=== PATIENT | female | born 1955 | race Two or more races ===

== ENCOUNTER 2024-06-25 19:38 | Emergency (ER) | payer BC, MEDICAID ==
[~2024-06-25] VITALS: Ht 160 cm; Wt 68.1 kg
[2024-06-25 19:40] VITALS: O2SAT 100
[2024-06-25] MEDS ORDERED: MORPHINE SULFATE 4 MG/ML SYR/VIAL IM ONE (20:00)
--- NOTE | 2024-06-25 20:48 | DVH ---
Exam: CT CT AB PEL WO CON-NO ORAL OR IV History: flank pain Comparison Study: None Technique: Multidetector CT of the abdomen and pelvis without contrast. Axial, coronal and sagittal m ultiplanar reformats were performed by the technologist on a separate workstation. Radiation Dose Information: CT Dose: CTDI volume is 7.73 mGy. Dose-length product is 410.41 mGy*cm Findings: Bibasilar atelectasis. Mild cardiomegaly. Mild hepatomegaly with hepatic steatosis. Cholelithiasis with no CT evidence of acute cholecystitis. Spleen, pancreas and right adrenal gland are unremarkable. 1.4 cm left adrenal nodule. Moderate right hydroureteronephrosis with 0.4 cm obstructing calculus over the right distal ureter. M ild asymmetric right-sided perinephric fat stranding which is most likely from the obstructive hydron ephrosis. The left kidney, left ureter and urinary bladder unremarkable. Uterus and adnexa unremarkab le. Small hiatal hernia. Otherwise, stomach is unremarkable. Small bowel loops unremarkable. Appendix is unremarkable. Sigmoid diverticulosis without diverticulitis. No evidence of intraperitoneal free air or free fluid. No evidence of aortic aneurysm. Mild atherosclerotic calcification of the aorta and bilateral iliacs. No significant lymphadenopathy. Small fat containing umbilical hernia. Soft tissues are unremarkable. No destructive osseous lesions are noted. IMPRESSION: Moderate right hydroureteronephrosis with 0.4 cm obstructing calculus over the right distal ureter. Cholelithiasis with no CT evidence of acute cholecystitis. Mild hepatomegaly with hepatic steatosis. Small hiatal hernia. 1.4 cm left adrenal nodule.
[2024-06-25 20:59] LABS: Basophils # (auto) 0 10 ^3/uL (0-0.2); Basophils % (auto) 0.2 % (0.0-2.0); Eosinophils # (auto) 0 10 ^3/uL (0-0.8); Eosinophils % (auto) 0.2 % (0.0-7.0); Hematocrit 45.1 % (36.0-46.0); Hemoglobin 15.7 g/dL (12.2-16.2); Lymphocytes # (auto) 0.8 10 ^3/uL (0.4-5.4); Lymphocytes % (auto) 6.5 % (10.0-50.0); Mean Corpuscular Hemoglobin 30.7 pg (28.0-32.0); Mean Corpuscular Hgb Conc. 34.8 g/dL (32.0-36.0); Mean Corpuscular Volume 88.3 fL (80.0-100.0); Monocytes # (auto) 0.3 10 ^3/uL (0-1.3); Monocytes % (auto) 2.1 % (0.0-12.0); Neutrophils # (auto) 11.7 10 ^3/uL (1.6-8.6); Platelet Count (auto) 231 10^3/uL (140-450); Red Blood Cells 5.11 10^6/uL (4.0-5.20); Red Cell Distribution Width 13.9 % (11.8-14.3); White Blood Cell 12.8 10^3/uL (4.4-10.8)
[2024-06-25 21:13] LABS: Chloride 107 mmol/L (98-107); Potassium 4.2 mmol/L (3.5-5.1); Sodium 140 mmol/L (136-145)
[2024-06-25 21:14] LABS: Anion Gap 12 (5-15); Calcium 10.6 mg/dL (8.7-10.4); Carbon Dioxide 21 mmol/L (20-31)
--- NOTE | 2024-06-25 21:14 | ED.PDOC ---
General HPI Comments Patient complaining of right-sided flank pain which started today. Reports pain is 10/10. Reports some mild dysuria today. Nothing makes it better, nothing makes it worse. Patient does report a history of kidney stones. States she was hospitalist for kidney stones six months ago approximately. No new foods no new medications no recent travel no trauma to the back no heavy lifting. 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 History Constitutional: denies: chills, diaphoresis, fatigue, fever, malaise, sweats, weakness, others EENTM: denies: blurred vision, double vision, ear bleeding, ear discharge, ear drainage, ear pain, ear ringing, eye pain, eye redness, hearing loss, mouth pain, mouth swelling, nasal discharge, nose bleeding, nose congestion, nose pain, photophobia, tearing, throat pain, throat swelling, voice changes, others Respiratory: denies: cough, hemoptysis, orthopnea, SOB at rest, shortness of breath, SOB with excertion, stridor, wheezing, others Cardiovascular: denies: chest pain, dizzy spells, diaphoresis, Dyspnea on exertion, edema, irregular heart beat, left arm pain, lightheadedness, palpitations, PND, syncope, others Gastrointestinal: denies: abdomen distended, abdominal pain, blood streaked bowels, constipated, diarrhea, dysphagia, difficulty swallowing, hematemesis, melena, nausea, poor appetite, poor fluid intake, rectal bleeding, rectal pain, vomiting, others Genitourinary: reports: flank pain; denies: abnormal vagina bleeding, burning, dyspareunia, dysuria, frequency, hematuria, incontinence, pain, , vagina discharge, urgency, others Neurological: denies: dizziness, fainting, headache, left sided numbness, left sided weakness, numbness, paresthesia, pre-existing deficit, right sided numbness, right sided weakness, seizure, speech problems, tingling, tremors, weakness, others Musculoskeletal: denies: back pain, gout, joint pain, joint swelling, muscle pain, muscle stiffness, neck pain, others Integumetry: denies: bruises, change in color, change in hair/nails, dryness, laceration, lesions, lumps, rash, wounds, others Allergic/Immunocompromised: denies: Difficulty Healing, Frequent Infections, Hives, Itching, others Hematologic/Lymphatic: denies: anemia, blood clots, easy bleeding, easy bruising, swollen glands, others Endocrine: denies: excessive hunger, excessive sweating, excessive thirst, excessive urination, flushing, intolerance to cold, intolerance to heat, unex plained weight gain, unexplained weight loss, others Psychiatric: denies: anxiety, bipolar disorder, depression, hopeless, panic disorder, schizophrenia, sleepless, suicidal, others Physical Exam General Appearance: Severe Distress HEENT: Normal ENT Inspection, Pharynx Normal, TMs Normal Neck: Full Range of Motion, Non-Tender, Normal, Normal Inspection Respiratory: Chest Non-Tender, Lungs Clear, No Accessory Muscle Use, No Respiratory Distress, Normal Breath Sounds Cardiovascular: No Edema, No JVD, No Murmur, No Gallop, Normal Peripheral Pulses, Regular Rate/Rhythm Breast Exam: Deferred Gastrointestinal: No Organomegaly, Non Tender, No Pulsatile Mass, Normal Bowel Sounds, Soft Genitalia: Deferred Pelvic: Deferred Rectal: Deferred Extremities: No calf tenderness, Normal capillary refill, Normal inspection, Normal range of motion, Non-tender, No pedal edema Musculoskeletal : Location: Bilateral Extremity Location: Other (Negative CVA tenderness) Apperance: Normal Neurologic: Alert, auto adjudication specialist II-XII nml as Tested, No Motor Deficits, Normal Affect, Normal Mood, No Sensory Deficits Cerebellar Function: Normal Reflexes: Normal Skin: Dry, Normal Color, Warm Lymphatic: No Adenopathy Was a procedure done? Was a procedure done?: No Differential Diagnosis Kidney stone (Female): Bowel obstruction, Cholelithiasis, Renal failure, Strain, Urinary obstruction X-Ray, Labs, Meds, VS Vital Signs Date Time Temp Pulse Resp B/P (MAP) Pulse Ox O2 Delivery O2 Flow Rate FiO2 06/25/24 19:40 98.3 108 20 152/89 (110) 100 Lab Test 06/25/24 20:10 Range/Units White Blood Count 12.8 H 4.4-10.8 10^3/uL Red Blood Count 5.11 4.0-5.20 10^6/uL Hemoglobin 15.7 12.2-16.2 g/dL Hematocrit 45.1 36.0-46.0 % Mean Corpuscular Volume 88.3 80.0-100.0 fL Mean Corpuscular Hemoglobin 30.7 28.0-32.0 pg Mean Corpuscular Hemoglobin Concent 34.8 32.0-36.0 g/dL Red Cell Distribution Width 13.9 11.8-14.3 % Platelet Count 231 140-450 10^3/uL Mean Platelet Volume 9.2 6.9-10.8 fL Neutrophils (%) (Auto) 91.0 H 37.0-80.0 % Lymphocytes (%) (Auto) 6.5 L 10.0-50.0 % Monocytes (%) (Auto) 2.1 0.0-12.0 % Eosinophils (%) (Auto) 0.2 0.0-7.0 % Basophils (%) (Auto) 0.2 0.0-2.0 % Neutrophils # (Auto) 11.7 H 1.6-8.6 10 ^3/uL Lymphocytes # (Auto) 0.8 0.4-5.4 10 ^3/uL Monocytes # (Auto) 0.3 0-1.3 10 ^3/uL Eosinophils # (Auto) 0 0-0.8 10 ^3/uL Basophils # (Auto) 0 0-0.2 10 ^3/uL Nucleated Red Blood Cells 0.0 % Sodium Level Pending Potassium Level Pending Chloride Level Pending Carbon Dioxide Level Pending Anion Gap Pending Blood Urea Nitrogen Pending Creatinine Pending Glomerular Filtration Rate Calc Pending BUN/Creatinine Ratio Pending Serum Glucose Pending Calcium Level Pending X-Ray, Labs, Meds, VS Comment Patient will be admitted for obstructing kidney stone on left side Recommend urology consult We will scan gallbladder he ultrasound to better visualize common bile duct Patient will be started on pain medications Time of 1ST Reevaluation: 21:14 Reevaluation 1ST: Unchanged Patient Education/Counseling: Diagnosis, Treatment Family Education/Counseling: Diagnosis Departure 1 Departure Time of Disposition: 21:13 Impression: Primary Impression: Cholelithiasis Qualified Codes: K80.80 - Other cholelithiasis without obstruction Additional Impression: Urinary tract obstruction by kidney stone Disposition: ADMITTED INPATIENT Condition: Stable Critical Care Note Critical Care Time?: No Stability Stability form required: No Heart Score Heart Score: Heart Score Response (Comments) Value History N/A 0 EKG N/A 0 Age N/A 0 Risk Factors N/A 0 Troponin N/A 0 Total 0 STEPHANIE CORCORAN CUFF MAKER Jun 25, 2024 21:14
[2024-06-25 21:19] LABS: BUN/Creatinine Ratio 13.9 (10.0-20.0); Blood Urea Nitrogen 14 mg/dL (9-23); Glucose 205 mg/dL (74-106)
--- NOTE | 2024-06-25 21:42 | DVH ---
INDICATION: flank pain TECHNIQUE: Multiple real-time sonographic images were obtained of the right upper quadrant. COMPARISON: None FINDINGS: The liver demonstrates homogeneous echotexture without focal mass lesions. The liver measu res 18 cm. There is no intrahepatic or extrahepatic ductal dilatation. The common duct measures 0.3 cm. The gallbladder is without evidence of stone or sludge. The gallbladder wall measures 3.0 cm and is within normal limits. The right kidney measures 12.0 cm. The right kidney is normal in contour, size, and shape. The echo genicity is normal. Mild right-sided hydronephrosis. The pancreas is not well visualized due to overlying bowel gas. IMPRESSION: 1. Cholelithiasis without evidence of cholecystitis. 2. Mild right-sided hydronephrosis.
[2024-06-25] MEDS: KETOROLAC TROMETH 30 MG/ML 1ML VIAL IV ONE (21:45)
[2024-06-25] MEDS ORDERED: ONDANSETRON HCL 4 MG/2 ML VIAL IV PRN (23:45)
[2024-06-25] MEDS: TAMSULOSIN HYDROCHLORIDE 0.4 MG CAP PO ONE (23:46)
[2024-06-25] MEDS: MORPHINE SULFATE 4 MG/ML SYR/VIAL IV PRN (23:46)
[2024-06-25] MEDS: cefTRIAXone 1GM/50ML D5W 50 ML IV ONE (23:46)
[2024-06-25] MEDS: SODIUM CHLORIDE 0.9% 1,000 ML IV ONE (23:46)
[2024-06-26 00:25] VITALS: BP 142/92; PULSE 100; RESP 18
== END 2024-06-26 01:30 | disposition left against medical advice (07) ==
LOC: EDBD 19:38 → ER 19:38
DX: K80.20 Calculus of gallbladder without cholecystitis without obstruction (principal); N13.8 Other obstructive and reflux uropathy; N20.0 Calculus of kidney
CPT/HCPCS: 36415; 74176; 76705; 80048; 85025; 96365; 96375; 99285; J0696; J1885; J2270

== ENCOUNTER 2024-07-30 12:49 | Inpatient (IN) | payer BC, MEDICAID ==
[~2024-07-30] VITALS: Ht 170.2 cm; Wt 78.9 kg
--- NOTE | 2024-07-30 13:18 | ED.PDOC ---
History of Present Illness HPI Comments 68 y/o F presents with son for c/o left-shoulder wound drainage and associated pain, nausea, vomiting, fever, and chills, today. Per son, patent is stated to have been progressively getting worse since initial onset after being placed on oral Doxycycline antibiotics following urgent care facility visit for chronic wound to her left shoulder that she has had for "awhile." Patient rates pain a 7-10/10 and wound last being dressed, this morning. She reports no additional relevant or pertinent Hx, such as recent injuries. Patient reports no headache, urinary symptoms, abdominal pain, cough, shortness of breath, or other associated symptoms or modifiers at this time. Time Seen by MD: 13:00 Reviewed Notes: Nurses Notes, Medications, Allergies Allergies: Coded Allergies: NO KNOWN ALLERGIES (Unverified , 06/25/24) Information Source: Patient, Relative (Child) Mode of Arrival: Wheelchair Severity: Moderate Timing: Weeks Duration: Since onset Prehospital treatment: Other (see HPI) Past Medical History PAST MEDICAL HISTORY: CVA, High Lipids, Kidney Stones Surgical History: Cholecystectomy, , Denies all surgeries DISC RECORDIST History: No Pertinent DISC RECORDIST History Family History Family History: Unknown Social History Smoker: Cigarettes Alcohol: Denies ETOH Use Drugs: Denies Drug Use Lives In: Home Constitutional: reports: chills, fever; denies: diaphoresis, fatigue, malaise, sweats, weakness, others EENTM: denies: blurred vision, double vision, ear bleeding, ear discharge, ear drainage, ear pain, ear ringing, eye pain, eye redness, hearing loss, mouth pain, mouth swelling, nasal discharge, nose bleeding, nose congestion, nose pain, photophobia, tearing, throat pain, throat swelling, voice changes, others Respiratory: denies: cough, hemoptysis, orthopnea, SOB at rest, shortness of breath, SOB with excertion, stridor, wheezing, others Cardiovascular: denies: chest pain, dizzy spells, diaphoresis, Dyspnea on exertion, edema, irregular heart beat, left arm pain, lightheadedness, palpitations, PND, syncope, others Gastrointestinal: reports: nausea, vomiting; denies: abdomen distended, abdominal pain, blood streaked bowels, constipated, diarrhea, dysphagia, difficulty swallowing, hematemesis, melena, poor appetite, poor fluid intake, rectal bleeding, rectal pain, others Genitourinary: denies: abnormal vagina bleeding, burning, dyspareunia, dysuria, flank pain, frequency, hematuria, incontinence, pain, , vagina discharge, urgency, others Neurological: denies: dizziness, fainting, headache, left sided numbness, left sided weakness, numbness, paresthesia, pre-existing deficit, right sided numbness, right sided weakness, seizure, speech problems, tingling, tremors, weakness, others Musculoskeletal: reports: others (left shoulder pain); denies: back pain, gout, joint pain, joint swelling, muscle pain, muscle stiffness, neck pain Integumetry: reports: wounds (left shoulder wound drainage); denies: bruises, change in color, change in hair/nails, dryness, laceration, lesions, lumps, rash, others Allergic/Immunocompromised: denies: Difficulty Healing, Frequent Infections, Hives, Itching, others Hematologic/Lymphatic: denies: anemia, blood clots, easy bleeding, easy bruising, swollen glands, others Endocrine: denies: excessive hunger, excessive sweating, excessive thirst, excessive urination, flushing, intolerance to cold, intolerance to heat, unexplained weight gain, unexplained weight loss, others Psychiatric: denies: anxiety, bipolar disorder, depression, hopeless, panic disorder, schizophrenia, sleepless, suicidal, others All Other Systems: Reviewed and Negative Physical Exam General Appearance: Moderate Distress HEENT: Normal ENT Inspection, Pharynx Normal, TMs Normal Neck: Full Range of Motion, Non-Tender, Normal, Normal Inspection Respiratory: Chest Non-Tender, Lungs Clear, No Accessory Muscle Use, No Respiratory Distress, Normal Breath Sounds Cardiovascular: No Edema, No JVD, No Murmur, No Gallop, Normal Peripheral Pulses, Regular Rate/Rhythm Breast Exam: Deferred Gastrointestinal: No Organomegaly, Non Tender, No Pulsatile Mass, Normal Bowel Sounds, Soft Genitalia: Deferred Pelvic: Deferred Rectal: Deferred Extremities: No calf tenderness, Normal capillary refill, Normal inspection, Normal range of motion, Non-tender, No pedal edema Musculoskeletal : Apperance: Normal Neurologic: Alert, warp tying 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 Was a procedure done?: No Differential Dx Considerations may include: sepsis, cellulitis, dermatitis X-Ray, Labs, Meds, VS Vital Signs Date Time Temp Pulse Resp B/P (MAP) Pulse Ox O2 Delivery O2 Flow Rate FiO2 07/30/24 13:44 93 16 110/75 07/30/24 13:21 93 20 97 Room Air 07/30/24 13:21 97.5 93 20 110/75 (87) 97 97.5 07/30/24 13:00 98.3 104 18 97/76 (83) 95 Lab Test 07/30/24 13:10 Range/Units White Blood Count 5.0 4.4-10.8 10^3/uL Red Blood Count 5.41 H 4.0-5.20 10^6/uL Hemoglobin 16.2 12.2-16.2 g/dL Hematocrit 48.0 H 36.0-46.0 % Mean Corpuscular Volume 88.7 80.0-100.0 fL Mean Corpuscular Hemoglobin 29.9 28.0-32.0 pg Mean Corpuscular Hemoglobin Concent 33.7 32.0-36.0 g/dL Red Cell Distribution Width 14.2 11.8-14.3 % Platelet Count 222 140-450 10^3/uL Mean Platelet Volume 9.5 6.9-10.8 fL Neutrophils (%) (Auto) 66.7 37.0-80.0 % Lymphocytes (%) (Auto) 20.6 10.0-50.0 % Monocytes (%) (Auto) 11.9 0.0-12.0 % Eosinophils (%) (Auto) 0.3 0.0-7.0 % Basophils (%) (Auto) 0.5 0.0-2.0 % Neutrophils # (Auto) 3.3 1.6-8.6 10 ^3/uL Lymphocytes # (Auto) 1.0 0.4-5.4 10 ^3/uL Monocytes # (Auto) 0.6 0-1.3 10 ^3/uL Eosinophils # (Auto) 0 0-0.8 10 ^3/uL Basophils # (Auto) 0 0-0.2 10 ^3/uL Nucleated Red Blood Cells 0.2 % Prothrombin Time 10.8 9.3-11.8 sec Prothrombin Time INR 1.02 0.9-1.15 Sodium Level 135 L 136-145 mmol/L Potassium Level 3.9 3.5-5.1 mmol/L Chloride Level 105 98-107 mmol/L Carbon Dioxide Level 19 L 20-31 mmol/L Anion Gap 11 5-15 Blood Urea Nitrogen 21 9-23 mg/dL Creatinine 1.05 H 0.550-1.02 mg/dL Glomerular Filtration Rate Calc 59 >90 mL/min BUN/Creatinine Ratio 20.0 10.0-20.0 Serum Glucose 177 H 74-106 mg/dL Lactic Acid Level 1.3 0.4-2.0 mmol/L Calcium Level 9.9 8.7-10.4 mg/dL Current Medications Medications (Trade) Dose Ordered Sig/Myah Route Start Time Stop Time Status Last Admin Morphine Sulfate 4 mg ONCE ONCE IV 07/30/24 13:15 07/30/24 13:16 DC 07/30/24 13:44 Ondansetron HCl (Zofran) 4 mg ONCE ONCE IV 07/30/24 13:15 07/30/24 13:16 DC 07/30/24 13:44 The chest x-ray shows: IMPRESSION: Mild pulmonary vascular congestion. CT scan of the left shoulder is pending The CBC and chemistry panel is within normal limits The patient was given morphine 4 mg IV push for the pain The patient was given Zofran 4 mg IV push for the nausea and vomiting At this time, the patient will be admitted to the hospital. We spoke with the [facility] physician and he is admitting the patient was this time. Images Reviewed?: Images reviewed and evaluated by me Time of 1ST Reevaluation: 13:30 Reevaluation 1ST: Unchanged Patient Education/Counseling: Diagnosis, Treatment, Prognosis Family Education/Counseling: Diagnosis, Treatment, Prognosis Departure 1 Departure Time of Disposition: 16:05 Impression: Primary Impression: Infected blister of left shoulder Qualified Codes: S40.222A - Blister (nonthermal) of left shoulder, initial encounter; L08.9 - Local infection of the skin and subcutaneous tissue, unspecified Additional Impression: Abscess of left shoulder Disposition: ADMITTED INPATIENT Admit to: Med Surg Condition: Fair Critical Care Note Critical Care Time?: No Stability Stability form required: Yes Unstable for transfer: ED Physician Assesment (Clinical assesment) Heart Score Heart Score: Heart Score Response (Comments) Value History N/A 0 EKG N/A 0 Age N/A 0 Risk Factors N/A 0 Troponin N/A 0 Total 0 I personally scribed for MIMI VILLARREAL MD ([email or web address]) on 07/30/24 at 13:18. Elec tronically submitted by Phoenix Joseph ([email or web address]). MIMI VILLARREAL MD Jul 30, 2024 13:18
[2024-07-30 13:35] LABS: Basophils # (auto) 0 10 ^3/uL (0-0.2); Basophils % (auto) 0.5 % (0.0-2.0); Eosinophils # (auto) 0 10 ^3/uL (0-0.8); Eosinophils % (auto) 0.3 % (0.0-7.0); Hemoglobin 16.2 g/dL (12.2-16.2); Lymphocytes % (auto) 20.6 % (10.0-50.0); Mean Corpuscular Hemoglobin 29.9 pg (28.0-32.0); Mean Corpuscular Hgb Conc. 33.7 g/dL (32.0-36.0); Mean Corpuscular Volume 88.7 fL (80.0-100.0); Monocytes # (auto) 0.6 10 ^3/uL (0-1.3); Monocytes % (auto) 11.9 % (0.0-12.0); Neutrophils # (auto) 3.3 10 ^3/uL (1.6-8.6); Neutrophils % (auto) 66.7 % (37.0-80.0); Nucleated Red Blood Cells % 0.2 %; Platelet Count (auto) 222 10^3/uL (140-450); Red Blood Cells 5.41 10^6/uL (4.0-5.20); Red Cell Distribution Width 14.2 % (11.8-14.3)
[2024-07-30 13:43] LABS: Chloride 105 mmol/L (98-107); Potassium 3.9 mmol/L (3.5-5.1)
[2024-07-30 13:44] LABS: Anion Gap 11 (5-15); Calcium 9.9 mg/dL (8.7-10.4)
[2024-07-30] MEDS: ONDANSETRON HCL 4 MG/2 ML VIAL IV ONE (13:44)
[2024-07-30] MEDS: MORPHINE SULFATE 4 MG/ML SYR/VIAL IV ONE (13:44)
[2024-07-30 13:49] LABS: Blood Urea Nitrogen 21 mg/dL (9-23)
[2024-07-30 13:50] LABS: Carbon Dioxide 19 mmol/L (20-31); Glucose 177 mg/dL (74-106); Sodium 135 mmol/L (136-145)
[2024-07-30] MEDS ORDERED: VANCOMYCIN PER PHARMACY 0 MG IV SCH (14:15)
[2024-07-30] MEDS: SODIUM CHLORIDE 0.9% 1,000 ML IV ONE (14:15)
[2024-07-30] MEDS ORDERED: NITROGLYCERIN 0.4 MG SL TAB SL PRN (14:15)
[2024-07-30 14:50] VITALS: PULSE 93; RESP 20; O2SAT 97
[2024-07-30 14:59] LABS: INR 1.02 (0.9-1.15); Prothrombin Time 10.8 sec (9.3-11.8)
[2024-07-30] MEDS: PIPERACILLIN-TAZOB 3.375GM 100 ML IV ONE (15:08)
--- NOTE | 2024-07-30 15:36 | DVH ---
CHEST RADIOGRAPH Indication: pna Technique: Single frontal view of the chest was obtained Comparison: None FINDINGS: Lines and Tubes: None Lungs: No focal consolidation. Mild interstitial prominence. Pleura: No effusion. No pneumothorax. Cardiomediastinal contours: Unremarkable Bones: No acute osseous abnormality. IMPRESSION: Mild pulmonary vascular congestion.
[2024-07-30] MEDS: VANCOMYCIN 1.25GM/250ML 250 ML IV ONE (15:37)
[2024-07-30] MEDS ORDERED: ONDANSETRON HCL 4 MG/2 ML VIAL IV PRN (18:00)
[2024-07-30] MEDS: HYDROcodone-ACET 10/325MG TAB PO ONE (19:49)
--- NOTE | 2024-07-30 21:29 | DVH ---
INDICATION: pain COMPARISON: None TECHNIQUE: CT of the right was performed without contrast. Volume transverse images were obtained a nd reconstructed in multiple planes using bone and soft tissue algorithms. CONTRAST: None Radiation Dose Information: CT Dose: CTDI volume is 20.69 mGy. Dose-length product is 457.42 mGy*cm FINDINGS: The alignment is normal. The joint spaces are normal. Fracture of the 1st rib and manubrium. The soft tissues are normal. IMPRESSION: Appears to be a fracture of the medial aspect of the 1st rib with the articulation of the manubrium.
[2024-07-30] MEDS: PIPERACILLIN-TAZOB 3.375GM 100 ML IV SCH (22:44)
[2024-07-31] VITALS (9 sets, daily range): BP systolic 103–121; BP diastolic 61–69; PULSE 77–93; RESP 16–22; TEMP 97.9–99.5; O2SAT 92–96
[2024-07-31] MEDS: MORPHINE SULFATE INJ 2 MG/ml SYRG IV PRN ×2 (02:03→02:05)
--- NOTE | 2024-07-31 06:55 | DVHHP2 ---
Admitting Diagnosis: wound History of Present Illness HPI 68 F who comes to ER with a wound over her L upper back. She states she had gone to the and was given PO doxycycline however over the last few days there has been significant drainage and she has been experiencing more pain associated with nausea and vomiting. On arrival to ED she was noted to have a saturated dressing over the wound with surrounding erythema. She was given IV Abx in ER and will be admitted to the hospital for continued IV Abx and ID consult. She denies any other complaints or issues. Home Meds Unable to Obtain Active Prescriptions or Reported Meds Past Medical History Cardiac: Hyperlipidemia Patient Family History: Patient reports no known family medical history. Review of Systems Constitutional: No symptom reported Eyes: No symptom reported Gastrointestinal: Nausea, Vomiting Genitourinary: No symptom reported Musculoskeletal: Back pain Skin: No symptom reported Endocrine: No symptom reported H&P Exam Vital Signs Vital Signs Date Time Temp Pulse Resp B/P (MAP) Pulse Ox O2 Delivery O2 Flow Rate FiO2 07/31/24 02:35 84 18 113/77 07/31/24 01:07 Room Air* 0 21 07/31/24 01:00 98.4 93 98.4 General Appeara: Well developed Neck Exam: Non-tender Nasal Exam: Normal inspection Pulmonary/Respiratory: Decreased breath sounds Cardiovascular/Chest: Normal inspection Wounds L upper back, surrounding erythema and drainage noted Labs/Xrays Labs Test 07/31/24 05:38 07/30/24 13:10 Range/Units Eosinophils (%) (Auto) 0.3 0.0-7.0 % Eosinophils # (Auto) 0 0-0.8 10 ^3/uL Basophils # (Auto) 0 0-0.2 10 ^3/uL Nucleated Red Blood Cells 0.2 % Prothrombin Time 10.8 9.3-11.8 sec Prothrombin Time INR 1.02 0.9-1.15 Lactic Acid Level 1.3 0.4-2.0 mmol/L Assessment/Plan Primary Diagnosis 1) L upper back abscess 2) hx of CVA 3) HLD plan; admit tele, IV Abx broad spectrum, wound CX and BCx, cardiac diet, gen surg eval for ?drainage, ID consult, supportive care, will follow Plan discussed with: Other (n) JOHNNY WALSH MD Jul 31, 2024 06:55
[2024-07-31 06:59] LABS: Chloride 105 mmol/L (98-107); Potassium 3.6 mmol/L (3.5-5.1); Sodium 137 mmol/L (136-145)
[2024-07-31 07:00] LABS: Anion Gap 10 (5-15); Calcium 9.2 mg/dL (8.7-10.4); Carbon Dioxide 22 mmol/L (20-31)
[2024-07-31 07:03] LABS: Basophils # (auto) 0 10 ^3/uL (0-0.2); Basophils % (auto) 0.5 % (0.0-2.0); Eosinophils # (auto) 0 10 ^3/uL (0-0.8); Eosinophils % (auto) 0.9 % (0.0-7.0); Hematocrit 41.6 % (36.0-46.0); Hemoglobin 14.1 g/dL (12.2-16.2); Lymphocytes # (auto) 1.1 10 ^3/uL (0.4-5.4); Lymphocytes % (auto) 23.8 % (10.0-50.0); Mean Corpuscular Hgb Conc. 33.8 g/dL (32.0-36.0); Mean Corpuscular Volume 88.7 fL (80.0-100.0); Monocytes # (auto) 0.5 10 ^3/uL (0-1.3); Monocytes % (auto) 11.4 % (0.0-12.0); Neutrophils % (auto) 63.4 % (37.0-80.0); Nucleated Red Blood Cells % 0.1 %; Platelet Count (auto) 163 10^3/uL (140-450); Red Blood Cells 4.69 10^6/uL (4.0-5.20); Red Cell Distribution Width 14.2 % (11.8-14.3); White Blood Cell 4.7 10^3/uL (4.4-10.8)
[2024-07-31 07:05] LABS: BUN/Creatinine Ratio 23.7 (10.0-20.0); Blood Urea Nitrogen 18 mg/dL (9-23)
[2024-07-31 07:06] LABS: Glucose 122 mg/dL (74-106)
--- NOTE | 2024-07-31 10:19 | DVHINCON2 ---
Date of service: Jul 31, 2024 Reason for Consultation LEFT POSTERIOR SHOULDER ABSCESS History of Present Illness History Source: Patient, RN Notes, MD Notes Exam Limitations: No limitations HPI 68 year old female presented to the ER with a wound to her left posterior shoulder. [facility]. Patient states wound did not improves and progressively got worse. Patient states the areas is very painful. Home Meds Unable to Obtain Active Prescriptions or Reported Meds Past Medical History Cardiac: Hyperlipidemia Pulmonary: No pertinent Hx Central Nervous System: No pertinent Hx GI: No pertinent Hx Hemotology/Oncology: No pertinent Hx Hepatobiliary: No pertinent Hx Psychiatric: No pertinent Hx Musculoskeletal: No pertinent Hx Rheumotologic: No pertinent Hx Infectious Disease: No peritnent Hx ENT: No pertinent Hx Renal/: No pertinent Hx Endocrine: No pertinent Hx Dermatology: No pertinent Hx Past Surgical History: No pertinent Hx Patient Family History: Patient reports no known family medical history. Smoker: Positive Alocohol: None Drugs: None Review of Systems Constitutional: No symptom reported Ears, Nose, & Throat: No symptom reported Eyes: No symptom reported Pulmonary/Respiratory: No symptom reported Cardiovascular: No symptom reported Gastrointestinal: No symptom reported Genitourinary: No symptom reported Musculoskeletal: No symptom reported Skin: Other (left shoulder wound, pain ) Psychiatric: No symptom reported Endocrine: No symptom reported Hemotologic/Lymphatic: No symptom reported H&P Exam Vital Signs Vital Signs Date Time Temp Pulse Resp B/P (MAP) Pulse Ox O2 Delivery O2 Flow Rate FiO2 07/31/24 02:35 84 18 113/77 07/31/24 01:07 Room Air* 0 21 07/31/24 01:00 98.4 93 98.4 General Appeara: Well developed, Well nourished, Normal Appearance Head Exam: Normal inspection Neck Exam: Normal inspection, Non-tender Eye Exam: bilateral eye Normal inspection Nasal Exam: Normal inspection Pulmonary/Respiratory: Normal inspection Cardiovascular/Chest: Normal inspection, Regular rate Shoulder Exam: Pain, Soft tissue tenderness, Other (left posterior shoulder wound) Neuro/Mental St: Alert, Oriented Appearance: Appropriate appearance Eye contact/ Speech: Cooperative, Good eye contact, Normal speech Skin Exam: Other (left shoulder wound ) Wounds left posterior shoulder wound Labs/Xrays Labs Test 07/31/24 05:38 07/30/24 13:10 Range/Units White Blood Count 4.7 4.4-10.8 10^3/uL Red Blood Count 4.69 4.0-5.20 10^6/uL Hemoglobin 14.1 12.2-16.2 g/dL Hematocrit 41.6 # 36.0-46.0 % Mean Corpuscular Volume 88.7 80.0-100.0 fL Mean Corpuscular Hemoglobin 30.0 28.0-32.0 pg Mean Corpuscular Hemoglobin Concent 33.8 32.0-36.0 g/dL Red Cell Distribution Width 14.2 11.8-14.3 % Platelet Count 163 140-450 10^3/uL Mean Platelet Volume 9.4 6.9-10.8 fL Neutrophils (%) (Auto) 63.4 37.0-80.0 % Lymphocytes (%) (Auto) 23.8 10.0-50.0 % Monocytes (%) (Auto) 11.4 0.0-12.0 % Eosinophils (%) (Auto) 0.9 0.0-7.0 % Basophils (%) (Auto) 0.5 0.0-2.0 % Neutrophils # (Auto) 3.0 1.6-8.6 10 ^3/uL Lymphocytes # (Auto) 1.1 0.4-5.4 10 ^3/uL Monocytes # (Auto) 0.5 0-1.3 10 ^3/uL Eosinophils # (Auto) 0 0-0.8 10 ^3/uL Basophils # (Auto) 0 0-0.2 10 ^3/uL Nucleated Red Blood Cells 0.1 % Sodium Level 137 136-145 mmol/L Potassium Level 3.6 3.5-5.1 mmol/L Chloride Level 105 98-107 mmol/L Carbon Dioxide Level 22 20-31 mmol/L Anion Gap 10 5-15 Blood Urea Nitrogen 18 9-23 mg/dL Creatinine 0.76 0.550-1.02 mg/dL Glomerular Filtration Rate Calc 86 >90 mL/min BUN/Creatinine Ratio 23.7 H 10.0-20.0 Serum Glucose 122 H 74-106 mg/dL Calcium Level 9.2 8.7-10.4 mg/dL Random Vancomycin Level 6.1 5-10 ug/mL Prothrombin Time 10.8 9.3-11.8 sec Prothrombin Time INR 1.02 0.9-1.15 Lactic Acid Level 1.3 0.4-2.0 mmol/L Assessment/Plan Plan patient was recently seen in urgent care and prescribed antibiotics, the ound continue to get progressively worse and she came to ER for wound evaluation patient states the area was draining , has become more painful, on exam patient has a wound to the left posterior shoulder with drainage, redness, and very tender to touch explained to patient the procedure to drain the wound and debridement. incision, drainage and debridement of left posterior shoulder wound tomorrow Plan discussed with: Patient, Other (Dr. Monroy ) Visit Coding Surgery Date of Service if different f: Jul 31, 2024 Billing Provider: JEMIMA MONROY MD Surgery Visit Codes: 92517 - INP CONSULT <80 MIN FAMILIA CANNON NP Jul 31, 2024 10:19
[2024-07-31] MEDS: VANCOMYCIN 1GM/250ML KIT 250 ML IV SCH (11:15)
--- NOTE | 2024-07-31 22:33 | DVHINCON2 ---
Family History: Patient reports no known family medical history. Allergies: Coded Allergies: NO KNOWN ALLERGIES (Unverified , 06/25/24) Home Meds Unable to Obtain Active Prescriptions or Reported Meds Current Medications Current Medications Medications (Trade) Dose Ordered Sig/Myah Route PRN Reason Start Time Stop Time Status Last Admin Acetaminophen (Tylenol Tablet) 650 mg Q4HP PRN PO MILD PAIN (1-3 PAIN SCALE) 07/31/24 01:45 Morphine Sulfate 1 mg Q4HP PRN IV SEVERE PAIN (7-10 PAIN SCALE) 07/31/24 01:45 07/31/24 11:16 Vancomycin HCl 250 ml @ 250 mls/hr Q12H IV 07/31/24 11:00 07/31/24 11:15 Vital Signs Vital Signs Date Time Temp Pulse Resp B/P (MAP) Pulse Ox O2 Delivery O2 Flow Rate FiO2 07/31/24 17:00 98.1 80 18 114/69 (84) 93 98.1 07/31/24 08:00 Room Air* 0 21 Labs/Diagnostic Data Labs Test 07/31/24 05:38 07/30/24 13:10 Range/Units White Blood Count 4.7 4.4-10.8 10^3/uL Red Blood Count 4.69 4.0-5.20 10^6/uL Hemoglobin 14.1 12.2-16.2 g/dL Hematocrit 41.6 # 36.0-46.0 % Mean Corpuscular Volume 88.7 80.0-100.0 fL Mean Corpuscular Hemoglobin 30.0 28.0-32.0 pg Mean Corpuscular Hemoglobin Concent 33.8 32.0-36.0 g/dL Red Cell Distribution Width 14.2 11.8-14.3 % Platelet Count 163 140-450 10^3/uL Mean Platelet Volume 9.4 6.9-10.8 fL Neutrophils (%) (Auto) 63.4 37.0-80.0 % Lymphocytes (%) (Auto) 23.8 10.0-50.0 % Monocytes (%) (Auto) 11.4 0.0-12.0 % Eosinophils (%) (Auto) 0.9 0.0-7.0 % Basophils (%) (Auto) 0.5 0.0-2.0 % Neutrophils # (Auto) 3.0 1.6-8.6 10 ^3/uL Lymphocytes # (Auto) 1.1 0.4-5.4 10 ^3/uL Monocytes # (Auto) 0.5 0-1.3 10 ^3/uL Eosinophils # (Auto) 0 0-0.8 10 ^3/uL Basophils # (Auto) 0 0-0.2 10 ^3/uL Nucleated Red Blood Cells 0.1 % Sodium Level 137 136-145 mmol/L Potassium Level 3.6 3.5-5.1 mmol/L Chloride Level 105 98-107 mmol/L Carbon Dioxide Level 22 20-31 mmol/L Anion Gap 10 5-15 Blood Urea Nitrogen 18 9-23 mg/dL Creatinine 0.76 0.550-1.02 mg/dL Glomerular Filtration Rate Calc 86 >90 mL/min BUN/Creatinine Ratio 23.7 H 10.0-20.0 Serum Glucose 122 H 74-106 mg/dL Calcium Level 9.2 8.7-10.4 mg/dL Random Vancomycin Level 6.1 5-10 ug/mL Prothrombin Time 10.8 9.3-11.8 sec Prothrombin Time INR 1.02 0.9-1.15 Lactic Acid Level 1.3 0.4-2.0 mmol/L Microbiology Date/Time Source Procedure Growth Status 07/30/24 13:10 Blood Blood Culture - Preliminary NO GROWTH AFTER 24 HOURS OF INCUBATION. Resulted ARIEL OGLESBY MD Jul 31, 2024 22:33
[2024-08-01] VITALS (9 sets, daily range): BP systolic 100–127; BP diastolic 51–78; PULSE 66–102; RESP 10–78; TEMP 97.7–99; O2SAT 92–99
[2024-08-01 07:02] LABS: Basophils # (auto) 0 10 ^3/uL (0-0.2); Basophils % (auto) 0.4 % (0.0-2.0); Eosinophils # (auto) 0 10 ^3/uL (0-0.8); Eosinophils % (auto) 0.9 % (0.0-7.0); Hematocrit 39.4 % (36.0-46.0); Hemoglobin 13.4 g/dL (12.2-16.2); Lymphocytes # (auto) 1.4 10 ^3/uL (0.4-5.4); Lymphocytes % (auto) 35.2 % (10.0-50.0); Mean Corpuscular Hemoglobin 29.7 pg (28.0-32.0); Mean Corpuscular Hgb Conc. 33.9 g/dL (32.0-36.0); Mean Corpuscular Volume 87.6 fL (80.0-100.0); Monocytes # (auto) 0.4 10 ^3/uL (0-1.3); Monocytes % (auto) 10.8 % (0.0-12.0); Neutrophils % (auto) 52.7 % (37.0-80.0); Nucleated Red Blood Cells % 0.1 %; Platelet Count (auto) 161 10^3/uL (140-450); Red Cell Distribution Width 13.9 % (11.8-14.3); White Blood Cell 3.9 10^3/uL (4.4-10.8)
[2024-08-01 07:40] LABS: Sodium 139 mmol/L (136-145)
[2024-08-01 07:41] LABS: Anion Gap 9 (5-15); Carbon Dioxide 23 mmol/L (20-31)
[2024-08-01 07:42] LABS: Calcium 9.4 mg/dL (8.7-10.4)
[2024-08-01 07:44] LABS: Chloride 107 mmol/L (98-107); Potassium 3.5 mmol/L (3.5-5.1)
[2024-08-01 07:47] LABS: BUN/Creatinine Ratio 18.3 (10.0-20.0); Blood Urea Nitrogen 13 mg/dL (9-23)
[2024-08-01 07:57] LABS: Glucose 124 mg/dL (74-106)
--- NOTE | 2024-08-01 13:01 | DVHPN2 ---
Progress Note - Dictate Date Seen: Aug 01, 2024 Medical Necessity Reason Pt with a Central, PICC or Fol: No Subjective Patient notes her shoulder pain has improved. Discussed plan for surgery today. vital signs Vital Sign Date Time Temp Pulse Resp B/P (MAP) Pulse Ox O2 Delivery O2 Flow Rate FiO2 08/01/24 09:00 98.0 77 18 100/51 (67) 97 98.0 08/01/24 08:05 Room Air* 0 21 Total Intake and Output 07/31/24 07/31/24 08/01/24 15:00 23:00 07:00 Intake Total 475 ml 850 ml Balance 475 ml 850 ml medications Current Medications Medications Dose Ordered Sig/Myah Route Start Time Stop Time Status Last Admin Dose Admin Nitroglycerin 0.4 mg Q5MINP PRN SL 07/30/24 14:15 Morphine Sulfate 2 mg Q30M PRN IV 07/30/24 14:15 Vancomycin HCl 0 ml @ 0 mls/hr UD IV 07/30/24 14:15 Piperacillin Sod/ Tazobactam Sod 100 ml @ 100 mls/hr Q8HR IV 07/30/24 22:00 08/01/24 05:30 100 MLS/HR Ondansetron HCl 4 mg Q4HPRN PRN IV 07/30/24 18:00 Acetaminophen 650 mg Q4HP PRN PO 07/31/24 01:45 Morphine Sulfate 1 mg Q4HP PRN IV 07/31/24 01:45 07/31/24 11:16 1 MG Vancomycin HCl 250 ml @ 250 mls/hr Q12H IV 07/31/24 11:00 08/01/24 11:50 250 MLS/HR objective General appearance: No acute distress Respiratory: Lungs clear to auscultation. No wheezing, crackles Cardiovascular: Regular rate and rhythm, no murmurs. No edema Abdomen: Soft, nondistended, nontender, bowel sounds present MSK: Normal range of motion. Neuro: Alert, no neurological deficits Psych: Appropriate mood and affect. laboratory and microbiology Laboratory Tests 08/01/24 05:33 Test 08/01/24 05:33 Range/Units Serum Glucose 124 H 74-106 mg/dL Problem List 1. Left Shoulder Pain with concern for abscess 2. Hx of Hypertension Assessment/Plan -General Surgery consulted for left shoulder pain with concern of underlying abscess. Plan for surgical intervention 08/01/2024. -Continue NPO -Pain medications listed per MAR -Infectious disease consulted, Dr. Cherry. Continue vancomycin and Zosyn -Wound culture preliminarily showing gram-positive cocci. Follow-up final results. -Blood cultures show no growth to date -Hold antihypertensives as patient is normotensive at this time. -Full code Plan discussed with: Patient NICKI SERRANO DO Aug 01, 2024 13:01
[2024-08-01] MEDS ORDERED: fentaNYL CITRATE 100 MCG/2 ML VL ONE (13:59)
[2024-08-01] MEDS ORDERED: MIDAZOLAM HCL 2MG/2ML 2ml VIAL (1mg/ml) ONE (13:59)
[2024-08-01] MEDS ORDERED: MEPERIDINE HCL (25 MG/ML) 1ML VIAL ONE (13:59)
[2024-08-01] MEDS: LIDOCAINE W/ EPINEPHRINE 1% 20ML VIAL ONE (14:18)
[2024-08-01] MEDS ORDERED: ePHEDrine SULFATE 50 MG/ML AMP IV PRN (14:30)
[2024-08-01] MEDS ORDERED: MIDAZOLAM HCL 2MG/2ML 2ml VIAL (1mg/ml) IV PRN (14:30)
[2024-08-01] MEDS ORDERED: HYDROmorphone HCL 2 MG/ML VL/or syr IV PRN (14:30)
[2024-08-01] MEDS ORDERED: fentaNYL CITRATE 100 MCG/2 ML VL IV PRN (14:30)
[2024-08-01] MEDS ORDERED: hydrALAZINE HCL 20 MG/ML VL IV PRN (14:30)
[2024-08-01] MEDS ORDERED: MORPHINE SULFATE 4 MG/ML SYR/VIAL IV PRN (14:30)
[2024-08-01] MEDS ORDERED: ONDANSETRON HCL 4 MG/2 ML VIAL IV ONE (14:30)
[2024-08-01] MEDS ORDERED: DexAMETHasone SOD PHOS 10MG/1ML VIAL INJ ONE (14:40)
--- NOTE | 2024-08-01 15:21 | DVHOP ---
DATE OF SURGERY: 08/01/2024 PREOPERATIVE DIAGNOSIS: Infected sebaceous cyst, left posterior shoulder. POSTOPERATIVE DIAGNOSIS: Infected sebaceous cyst, left posterior shoulder. SURGEON: Markel Monroy MD SAFETY DEPOSIT SUPERVISOR: Devon Jackson. PROCEDURE: Incision and drainage and debridement of sebaceous cyst (infected). DESCRIPTION OF PROCEDURE: Under adequate anesthesia, with the patient in lateral decubitus position with the skin prepped and draped and infiltrated with 0.25% Marcaine. The patient's wound was excised. The envelope of sebaceous cyst was excised and removed. The wound was then profusely irrigated with pulse lavage and then loosely packed with iodoform gauze. The patient remained stable throughout the procedure, left the operating room following an accurate needle and sponge count. Markel Monroy MD PF/MYRA TID: [id number] RECEIPT: [id number]
[2024-08-01] MEDS: ACETAMINOPHEN 325 MG TAB PO PRN (18:36)
[2024-08-01 21:13] LABS: Urine Bacteria None Seen /hpf (None Seen)
[2024-08-01 21:32] LABS: Urine Blood Negative /uL (Negative); Urine Budding Yeast FEW /hpf (None Seen); Urine Clarity Turbid (Clear); Urine Color Light-Yellow (Yellow); Urine Protein, UAD Negative (Negative); Urine Specific Gravity 1.021 (1.001-1.035); Urine Squamous Epithelial Cell FEW /hpf (<5); Urine Urobilinogen Normal (Negative); Urine WBC 4 /hpf (0 - 5); Urine pH 5.5 (5.0-9.0)
--- NOTE | 2024-08-01 23:23 | DVHPN2 ---
Consult Progress Note Objective vital signs Vital Sign Date Time Temp Pulse Resp B/P (MAP) Pulse Ox O2 Delivery O2 Flow Rate FiO2 08/01/24 21:00 98.0 78 16 100/63 (75) 94 98.0 08/01/24 15:08 Nasal Cannula 2.0 96 Total Intake and Output 07/31/24 07/31/24 08/01/24 15:00 23:00 07:00 Intake Total 475 ml 850 ml Balance 475 ml 850 ml medications Current Medications Medications Dose Ordered Sig/Myah Route Start Time Stop Time Status Last Admin Dose Admin Nitroglycerin 0.4 mg Q5MINP PRN SL 07/30/24 14:15 Morphine Sulfate 2 mg Q30M PRN IV 07/30/24 14:15 Vancomycin HCl 0 ml @ 0 mls/hr UD IV 07/30/24 14:15 Piperacillin Sod/ Tazobactam Sod 100 ml @ 100 mls/hr Q8HR IV 07/30/24 22:00 08/01/24 21:19 100 MLS/HR Ondansetron HCl 4 mg Q4HPRN PRN IV 07/30/24 18:00 Acetaminophen 650 mg Q4HP PRN PO 07/31/24 01:45 08/01/24 18:36 650 MG Morphine Sulfate 1 mg Q4HP PRN IV 07/31/24 01:45 07/31/24 11:16 1 MG Vancomycin HCl 250 ml @ 250 mls/hr Q12H IV 07/31/24 11:00 08/01/24 11:50 250 MLS/HR laboratory and microbiology Laboratory Tests 08/01/24 05:33 Test 08/01/24 05:33 Range/Units Serum Glucose 124 H 74-106 mg/dL Dietary Evaluation Review Comments: 1. Consider Benji for wound-healing. 2. Advance to diet after NPO for procedures. 3. Encouage fluids and fiber, to avoid constipation. 3. Monitor PO intake to meet 75% of her needs. Expected Outcomes/Goals: healed wounds, normal BMs ARIEL OGLESBY MD Aug 01, 2024 23:23
[2024-08-02] VITALS (8 sets, daily range): BP systolic 38–144; BP diastolic 54–93; PULSE 68–79; RESP 16–19; TEMP 97.3–98.5; O2SAT 92–96
[2024-08-02 06:26] LABS: Sodium 142 mmol/L (136-145)
[2024-08-02 06:27] LABS: Anion Gap 7 (5-15); Calcium 9.3 mg/dL (8.7-10.4); Carbon Dioxide 25 mmol/L (20-31)
[2024-08-02 06:28] LABS: Chloride 110 mmol/L (98-107); Potassium 3.5 mmol/L (3.5-5.1)
[2024-08-02 06:32] LABS: BUN/Creatinine Ratio 15.9 (10.0-20.0); Blood Urea Nitrogen 13 mg/dL (9-23); Glucose 119 mg/dL (74-106)
[2024-08-02 06:36] LABS: Basophils # (auto) 0 10 ^3/uL (0-0.2); Basophils % (auto) 0.4 % (0.0-2.0); Eosinophils # (auto) 0.1 10 ^3/uL (0-0.8); Eosinophils % (auto) 1.6 % (0.0-7.0); Hematocrit 36.4 % (36.0-46.0); Hemoglobin 12.7 g/dL (12.2-16.2); Lymphocytes # (auto) 1.5 10 ^3/uL (0.4-5.4); Lymphocytes % (auto) 35.7 % (10.0-50.0); Mean Corpuscular Hemoglobin 30.5 pg (28.0-32.0); Mean Corpuscular Hgb Conc. 34.9 g/dL (32.0-36.0); Mean Corpuscular Volume 87.4 fL (80.0-100.0); Monocytes # (auto) 0.5 10 ^3/uL (0-1.3); Monocytes % (auto) 11.2 % (0.0-12.0); Neutrophils # (auto) 2.2 10 ^3/uL (1.6-8.6); Neutrophils % (auto) 51.1 % (37.0-80.0); Nucleated Red Blood Cells % 0.2 %; Platelet Count (auto) 147 10^3/uL (140-450); Red Blood Cells 4.16 10^6/uL (4.0-5.20); Red Cell Distribution Width 13.9 % (11.8-14.3); White Blood Cell 4.3 10^3/uL (4.4-10.8)
[2024-08-02] MEDS ORDERED: BACDST PO (12:10)
[2024-08-02] MEDS ORDERED: CEPH250C PO (12:12)
[2024-08-02] MEDS ORDERED: HYDR-4902 PO (12:13)
[2024-08-02 13:01] LABS: Base Excess 0.8 mmol/L (-2.0-3.0)
--- NOTE | 2024-08-02 13:16 | DVHDS2 ---
Discharge Summary Date of Admission Jul 30, 2024 at 14:09 Date of Discharge: Aug 02, 2024 Labs/Diagnostic Data: Laboratory Results Test 08/02/24 12:56 08/02/24 05:00 08/01/24 20:50 08/01/24 10:49 Blood Gas Specimen Type Arterial Blood Gas Sample Site Left radial Blood Gas Patient Temperature 37.0 Arterial Blood Date Drawn [id number] Arterial Blood pH 7.456 (7.350-7.450) Arterial Blood Partial Pressure CO2 35.3 mmHg (32.0-45.0) Arterial Blood Partial Pressure O2 65.8 mmHg (83.0-108.0) Arterial Blood HCO3 24.3 mmol/L (21.0-28.0) Arterial Blood Oxygen Saturation 92.9 % (94.0-98.0) Arterial Blood Base Excess 0.8 mmol/L (-2.0-3.0) Arterial Blood Oxyhemoglobin 92.5 % (94.0-98.0) Arterial Blood Carboxyhemoglobin 0.2 % (0.5-1.5) Arterial Blood Methemoglobin 0.2 % (0.0-1.5) Alex Test Yes Blood Gas Total Hemoglobin 13.30 g/dL (12.0-16.0) Blood Gas Modality Room air FiO2 % 21.0 White Blood Count 4.3 10^3/uL (4.4-10.8) Red Blood Count 4.16 10^6/uL (4.0-5.20) Hemoglobin 12.7 g/dL (12.2-16.2) Hematocrit 36.4 % (36.0-46.0) Mean Corpuscular Volume 87.4 fL (80.0-100.0) Mean Corpuscular Hemoglobin 30.5 pg (28.0-32.0) Mean Corpuscular Hemoglobin Concent 34.9 g/dL (32.0-36.0) Red Cell Distribution Width 13.9 % (11.8-14.3) Platelet Count 147 10^3/uL (140-450) Mean Platelet Volume 9.2 fL (6.9-10.8) Neutrophils (%) (Auto) 51.1 % (37.0-80.0) Lymphocytes (%) (Auto) 35.7 % (10.0-50.0) Monocytes (%) (Auto) 11.2 % (0.0-12.0) Eosinophils (%) (Auto) 1.6 % (0.0-7.0) Basophils (%) (Auto) 0.4 % (0.0-2.0) Neutrophils # (Auto) 2.2 10 ^3/uL (1.6-8.6) Lymphocytes # (Auto) 1.5 10 ^3/uL (0.4-5.4) Monocytes # (Auto) 0.5 10 ^3/uL (0-1.3) Eosinophils # (Auto) 0.1 10 ^3/uL (0-0.8) Basophils # (Auto) 0 10 ^3/uL (0-0.2) Nucleated Red Blood Cells 0.2 % Sodium Level 142 mmol/L (136-145) Potassium Level 3.5 mmol/L (3.5-5.1) Chloride Level 110 mmol/L (98-107) Carbon Dioxide Level 25 mmol/L (20-31) Anion Gap 7 (5-15) Blood Urea Nitrogen 13 mg/dL (9-23) Creatinine 0.82 mg/dL (0.550-1.02) Glomerular Filtration Rate Calc 79 mL/min (>90) BUN/Creatinine Ratio 15.9 (10.0-20.0) Serum Glucose 119 mg/dL (74-106) Calcium Level 9.3 mg/dL (8.7-10.4) Urine Color Light-yellow (Yellow) Urine Clarity Turbid (Clear) Urine pH 5.5 (5.0-9.0) Urine Specific [place] 1.021 (1.001-1.035) Urine Protein Negative (Negative) Urine Ketones Negative (Negative) Urine Blood Negative /uL (Negative) Urine Nitrite Negative (Negative) Urine Bilirubin Negative (Negative) Urine Urobilinogen Normal mg/dL (Negative) Urine Leukocyte Esterase Negative /uL (Negative) Urine RBC 1 /hpf (0 - 4) Urine WBC 4 /hpf (0 - 5) Urine Squamous Epithelial Cells Few /hpf (<5) Urine Uric Acid Crystals Few /hpf (None Seen) Urine Bacteria None seen /hpf (None Seen) Urine Yeast (Budding) Few /hpf (None Seen) Urine Glucose Normal mg/dL (Normal) Vancomycin Level Trough 11.5 ug/mL (5-10) Test 07/31/24 05:38 07/30/24 13:10 Random Vancomycin Level 6.1 ug/mL (5-10) Prothrombin Time 10.8 sec (9.3-11.8) Prothrombin Time INR 1.02 (0.9-1.15) Lactic Acid Level 1.3 mmol/L (0.4-2.0) Other Laboratory Tests 08/02/24 05:00 Brief Hx & Hospital Course: Patient is a 68-year-old female who presented with complaints of left upper back pain. Patient was previously taking doxycycline but noted worsening pain with associated drainage. Imaging was notable for left shoulder CT which revealed a fracture of the medial aspect of the first rib with the articulation of the manubrium. Patient was evaluated by general surgery for concern of left shoulder abscess. Patient underwent debridement of the shoulder with associated abscess. Patient was evaluated by infectious disease. Patient received vancomycin and Zosyn while in the hospital. She was transition to Bactrim and Keflex for duration of 2 additional weeks on discharge. It is recommended that patient have a wound VAC placed. She was discharged on a 5-day course of [place] for pain. Patient was also discharged on 2 L supplemental oxygen. Patient to follow-up with general surgery. [facility] case management to arrange follow-up appointments. Condition at Discharge: Good Final Diagnosis/Problems List Left Shoulder Abscess Secondary Diagnosis: Acute Respiratory Failure First Rib Fracture Discharge Disposition: Home with Health Services Discharge Instruct/Medications Diet: Regular Activity: No Restrictions, As Tolerated Follow Up/Referral: Follow up with general surgery and infectious disease. Medications: Bactrim and Keflex x2 weeks Discharge Statement: "Patient was advised to return to the ER or call 911 if any headaches, dizziness, shortness of breath, chest pain, abdominal pain, bleeding, fevers, or worsening of medical condition. Patient was counseled about treatment plan, medications, possible side effects, patientverbalized understanding. All questions were answered to the best of my ability. This discharge took greater then 30 minutes in planning, reviewing documentation, counseling the patient, and discussing with other team members." ASSESSMENT ASSESSMENT Assessment Left Shoulder Abscess NICKI SERRANO DO Aug 02, 2024 13:16
[2024-08-03 01:00] VITALS: BP 134/77; PULSE 71; RESP 16; TEMP 97.5; O2SAT 94
[2024-08-03 05:00] VITALS: BP 135/72; PULSE 75; RESP 18; TEMP 97.4; O2SAT 95
[2024-08-03 06:01] LABS: Sodium 143 mmol/L (136-145)
[2024-08-03 06:02] LABS: Anion Gap 8 (5-15); Carbon Dioxide 26 mmol/L (20-31)
[2024-08-03 06:03] LABS: Calcium 9.3 mg/dL (8.7-10.4)
[2024-08-03 06:08] LABS: BUN/Creatinine Ratio 11.5 (10.0-20.0); Blood Urea Nitrogen 9 mg/dL (9-23)
[2024-08-03 06:14] LABS: Chloride 109 mmol/L (98-107); Glucose 120 mg/dL (74-106); Potassium 3.4 mmol/L (3.5-5.1)
[2024-08-03 06:31] LABS: Basophils # (auto) 0 10 ^3/uL (0-0.2); Basophils % (auto) 0.4 % (0.0-2.0); Eosinophils # (auto) 0.1 10 ^3/uL (0-0.8); Eosinophils % (auto) 1.1 % (0.0-7.0); Hematocrit 37.9 % (36.0-46.0); Hemoglobin 13.1 g/dL (12.2-16.2); Lymphocytes # (auto) 1.8 10 ^3/uL (0.4-5.4); Lymphocytes % (auto) 37.1 % (10.0-50.0); Mean Corpuscular Hemoglobin 30.3 pg (28.0-32.0); Mean Corpuscular Hgb Conc. 34.5 g/dL (32.0-36.0); Monocytes # (auto) 0.5 10 ^3/uL (0-1.3); Neutrophils # (auto) 2.4 10 ^3/uL (1.6-8.6); Neutrophils % (auto) 51.4 % (37.0-80.0); Nucleated Red Blood Cells % 0.1 %; Platelet Count (auto) 167 10^3/uL (140-450); Red Blood Cells 4.31 10^6/uL (4.0-5.20); Red Cell Distribution Width 14.1 % (11.8-14.3); White Blood Cell 4.8 10^3/uL (4.4-10.8)
[2024-08-03 08:00] VITALS: PULSE 90; RESP 18; O2SAT 95
[2024-08-03 09:00] VITALS: BP 138/73; PULSE 65; RESP 18; TEMP 98.1; O2SAT 93
[2024-08-03] MEDS ORDERED: POTASSIUM CHL 10 Meq TABLET PO ONE (10:45)
[2024-08-03 11:50] VITALS: BP 138/73; PULSE 65; RESP 18; TEMP 98.1; O2SAT 93
[2024-08-03 13:00] VITALS: BP 144/79; PULSE 92; RESP 17; TEMP 97.8; O2SAT 94
== END 2024-08-03 12:50 | disposition home health service (06) | DRG 570 ==
LOC: ER 12:49 → TELE 14:09 → TELE-CENTR 23:54
PROVIDERS: ADMIT Internal Medicine; ATTEND Student in an Organized Health Care Education/Training Program
PROC: 0JBH0ZZ Excision of Left Lower Arm Subcutaneous Tissue and Fascia, Open Approach (ICD-10-PCS; principal; 2024-08-01 14:01)
DX: L02.414 Cutaneous abscess of left upper limb (principal); J96.00 Acute respiratory failure, unspecified whether with hypoxia or hypercapnia; S22.32XA Fracture of one rib, left side, initial encounter for closed fracture; L02.212 Cutaneous abscess of back [any part, except buttock and flank]; E78.5 Hyperlipidemia, unspecified; L72.3 Sebaceous cyst; F17.210 Nicotine dependence, cigarettes, uncomplicated; I10 Essential (primary) hypertension; Z90.49 Acquired absence of other specified parts of digestive tract; Z87.442 Personal history of urinary calculi; Z86.73 Personal history of transient ischemic attack (TIA), and cerebral infarction without residual deficits; X58.XXXA Exposure to other specified factors, initial encounter; Y93.89 Activity, other specified; Y92.89 Other specified places as the place of occurrence of the external cause; Y99.8 Other external cause status
CPT/HCPCS: 36415; 36600; 71045; 73200; 80048; 80202; 81001; 82805; 83605; 85025; 85610; 86850; 86900; 86901; 87040; 87070; 87075; 87205; G0378; J1100; J2250; J2405; J2543

== ENCOUNTER 2024-08-04 14:53 | Emergency (ER) | payer BC, MEDICAID ==
[~2024-08-04] VITALS: Ht 170.2 cm; Wt 74.2 kg
[2024-08-04 14:53] VITALS: BP 176/75; PULSE 100; RESP 16; O2SAT 96
[~2024-08-04 14:53] MED LIST: BACDST PO; CEPH250C PO; HYDR-4902 PO
--- NOTE | 2024-08-04 16:24 | ED.PDOC ---
History of Present Illness HPI Comments 68 y/o F presents for wound evaluation, today. Patient endorses on seeking inquiry on have her left-shoulder abscess wound evaluated after her wound vacuum attachment, suddenly, stopped working when she returned home following recent [facility] admission discharge, yesterday. Patient comments on, already, calling home health team that was assigned to her prior to coming to the ED and being informed on them sending someone out regarding issue tomorrow. She denies having any pain, discharge, weakness, fever, chills, or other associated symptoms or modifiers at this time. Chief Complaint: Tube Replacement Time Seen by MD: 15:30 Primary Care Provider: LAURA Reviewed Notes: Nurses Notes, Medications, Allergies Allergies: Coded Allergies: NO KNOWN ALLERGIES (Unverified , 06/25/24) Home Meds Active Scripts Hydrocodone-Acetaminophen (Hydrocodone Bitartrate/AC 5-325 mg) 1 Tab Tab, 1 TAB PO Q6HPRN PRN for 6 Days, #24 TAB 0 Refills Prov:NICKI SERRANO DO 08/02/24 Cephalexin (KEFLEX CAPSULE) 250 Mg Cp, 1 CAP PO QID for 14 Days, #56 CAP 0 Refills Prov:NICKI SERRANO DO 08/02/24 Sulfamethoxazole W/Trimethopri (Bactrim Ds Tablet) 1 Tab Tb, 1 TAB PO BID for 14 Days, #28 TAB 0 Refills Prov:NICKI SERRANO DO 08/02/24 Information Source: Patient Mode of Arrival: Ambulatory Severity: Moderate Timing: Days Duration: Since onset Prehospital treatment: None Past Medical History PAST MEDICAL HISTORY: CVA, High Lipids, Kidney Stones Past Medical History (Other): left shoulder abscess, acute respiratory failure, first rib fracture Surgical History: Cholecystectomy, , Denies all surgeries PRODUCTION 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: No 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 PRODUCTION 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 History Family History Family History: Unknown Social History Smoker: Cigarettes Alcohol: Denies ETOH Use Drugs: Denies Drug Use Lives In: Home Integumetry: reports: wounds (wound check inquiry) All Other Systems: Reviewed and Negative (negative unless otherwise stated above or in HPI) Physical Exam General Appearance: Moderate Distress HEENT: Normal ENT Inspection, Pharynx Normal, TMs Normal Neck: Full Range of Motion, Non-Tender, Normal, Normal Inspection Respiratory: Chest Non-Tender, Lungs Clear, No Accessory Muscle Use, No Respiratory Distress, Normal Breath Sounds Cardiovascular: No Edema, No JVD, No Murmur, No Gallop, Normal Peripheral Pulses, Regular Rate/Rhythm Breast Exam: Deferred Gastrointestinal: No Organomegaly, Non Tender, No Pulsatile Mass, Normal Bowel Sounds, Soft Genitalia: Deferred Pelvic: Deferred Rectal: Deferred Extremities: No calf tenderness, Normal capillary refill, Normal inspection, Normal range of motion, Non-tender, No pedal edema Musculoskeletal : Apperance: Normal Neurologic: Alert, senior accounting associate II-XII nml as Tested, No Motor Deficits, Normal Affect, Normal Mood, No Sensory Deficits Cerebellar Function: Normal Reflexes: Normal Skin: Wounds (Left scapula) Peripheral Pulses: 3+ Radial (R), 3+ Radial (L) Lymphatic: No Adenopathy Was a procedure done? Was a procedure done?: No Differential Dx Considerations may include: wound vacuum device malfunction X-Ray, Labs, Meds, VS Vital Signs Date Time Temp Pulse Resp B/P (MAP) Pulse Ox O2 Delivery O2 Flow Rate FiO2 08/04/24 14:53 97.3 100 16 176/75 (108) 96 Patient alert. Came in for wound check. Wound is on left scapula healing well. Vitals stable. Discharged from this hospital yesterday. Reviewed her previous visit. Placed wound VAC for faster healing. Working well. No redness around the wound VAC. Will need to be changed as per wound care instructions. Explained to the patient about wound care. She was to follow up in the clinic tomorrow for change of dressing. She is currently on antibiotics. No sign of sepsis. No leg swelling. No chest pain. No shortness a breath. Heart rate clinically normal. Saturation pristine on room air. Explained to the patient. Was told to follow up with her primary care physician. Was told to come back if there is any problem. Time of 1ST Reevaluation: 16:00 Reevaluation 1ST: Improved Patient Education/Counseling: Diagnosis, Treatment Family Education/Counseling: No Family Present Additional Information I reviewed the following notes from patient's past medical encounters: discharge summary on 08/02/24 I discussed treatment and results with medical personnel Departure 1 Departure Time of Disposition: 16:31 Impression: Primary Impression: Visit for wound check Disposition: 01 HOME / SELF CARE / HOMELESS Condition: Good Discharged With: Self Critical Care Note Critical Care Time?: No Stability Stability form required: No Heart Score Heart Score: Heart Score Response (Comments) Value History N/A 0 EKG N/A 0 Age N/A 0 Risk Factors N/A 0 Troponin N/A 0 Total 0 I personally scribed for SHAE GUZMAN MD ([email or web address]) on 08/04/24 at 16:24. Electronically submitted by Phoenix Joseph ([email or web address]). SHAE GUZMAN MD Aug 04, 2024 16:24
== END 2024-08-04 17:03 | disposition home or self-care (01) ==
LOC: ER 14:53
DX: Z48.00 Encounter for change or removal of nonsurgical wound dressing (principal); Z86.73 Personal history of transient ischemic attack (TIA), and cerebral infarction without residual deficits; Z90.49 Acquired absence of other specified parts of digestive tract; Z87.442 Personal history of urinary calculi

== ENCOUNTER 2025-04-03 20:41 | Inpatient (IN) | payer BC, MEDICAID ==
[~2025-04-03] VITALS: Ht 160 cm; Wt 72.0 kg
--- NOTE | 2025-04-03 21:41 | ED.PDOC ---
Musculoskeletal HPI Comments 69-year-old female your via EMS for fall injury. Patient accidentally tripped on a hose earlier, fell badly on her right side. Complaining of right hip, right knee, and right leg pain. Patient unable to get up after the fall. Denies any loss of consciousness or head trauma Chief Complaint: Fall Injury Time Seen by MD: 21:40 Primary Care Provider: LAURA Murry Notes: Attending Ambulatory Care Notes Allergies: Coded Allergies: NO KNOWN ALLERGIES (Unverified , 06/25/24) Home Meds Active Scripts Hydrocodone-Acetaminophen (Hydrocodone Bitartrate/AC 5-325 mg) 1 Tab Tab, 1 TAB PO Q6HPRN PRN for 6 Days, #24 TAB 0 Refills Prov:ZACHNICKI S DO 08/02/24 Cephalexin (KEFLEX CAPSULE) 250 Mg Cp, 1 CAP PO QID for 14 Days, #56 CAP 0 Refills Prov:LEDARACHEL GUADALUPEI S DO 08/02/24 Sulfamethoxazole W/Trimethopri (Bactrim Ds Tablet) 1 Tab Tb, 1 TAB PO BID for 14 Days, #28 TAB 0 Refills Prov:NICKI SERRANO S DO 08/02/24 Information Source: Patient Mode of Arrival: EMS Location: Right Extremity Location: Hip, Knee, Leg Timing: Minutes Prehospital treatment: None Severity: Moderate Able to Move Extremity: No Bear Weight: Limited Mechanism: Blunt Trauma Circumstances: Fall Onset of Symptoms: After Trauma Symptoms: Swelling, Pain Associated signs and symptoms: Knee pain, Leg pain, Hip pain Past Medical History PAST MEDICAL HISTORY: CVA, High Lipids, Kidney Stones Surgical History: Cholecystectomy, , Denies all surgeries BRAND LEAD History: No Pertinent BRAND LEAD History Family History Family History: Reviewed,noncontributory to illness Social History Smoker: Cigarettes Alcohol: Denies ETOH Use Drugs: Denies Drug Use Lives In: Home Constitutional: denies: chills, diaphoresis, fatigue, fever, malaise, sweats, weakness, others EENTM: denies: blurred vision, double vision, ear bleeding, ear discharge, ear drainage, ear pain, ear ringing, eye pain, eye redness, hearing loss, mouth pain, mouth swelling, nasal discharge, nose bleeding, nose congestion, nose pain, photophobia, tearing, throat pain, throat swelling, voice changes, others Respiratory: denies: cough, hemoptysis, orthopnea, SOB at rest, shortness of breath, SOB with excertion, stridor, wheezing, others Cardiovascular: denies: chest pain, dizzy spells, diaphoresis, Dyspnea on exertion, edema, irregular heart beat, left arm pain, lightheadedness, palpitations, PND, syncope, others Gastrointestinal: denies: abdomen distended, abdominal pain, blood streaked bowels, constipated, diarrhea, dysphagia, difficulty swallowing, hematemesis, melena, nausea, poor appetite, poor fluid intake, rectal bleeding, rectal pain, vomiting, others Genitourinary: denies: abnormal vagina bleeding, burning, dyspareunia, dysuria, flank pain, frequency, hematuria, incontinence, pain, , vagina discharge, urgency, others Neurological: denies: dizziness, fainting, headache, left sided numbness, left sided weakness, numbness, paresthesia, pre-existing deficit, right sided numbness, right sided weakness, seizure, speech problems, tingling, tremors, weakness, others Musculoskeletal: reports: joint pain (Right hip, right knee), muscle pain (Right leg); denies: back pain, gout, joint swelling, muscle stiffness, neck pain, others Integumetry: denies: bruises, change in color, change in hair/nails, dryness, laceration, lesions, lumps, rash, wounds, others Allergic/Immunocompromised: denies: Difficulty Healing, Frequent Infections, Hives, Itching, others Hematologic/Lymphatic: denies: anemia, blood clots, easy bleeding, easy bruising, swollen glands, others Endocrine: denies: excessive hunger, excessive sweating, excessive thirst, excessive urination, flushing, intolerance to cold, intolerance to heat, unexplained weight gain, unexplained weight loss, others Psychiatric: denies: anxiety, bipolar disorder, depression, hopeless, panic disorder, schizophrenia, sleepless, suicidal, others Physical Exam General Appearance: No Apparent Distress, Normal HEENT: Normal ENT Inspection, Pharynx Normal, TMs Normal Neck: Full Range of Motion, Non-Tender, Normal, Normal Inspection Respiratory: Chest Non-Tender, Lungs Clear, No Accessory Muscle Use, No Respiratory Distress, Normal Breath Sounds Cardiovascular: No Edema, No JVD, No Murmur, No Gallop, Normal Peripheral Pulses, Regular Rate/Rhythm Breast Exam: Deferred Gastrointestinal: No Organomegaly, Non Tender, No Pulsatile Mass, Normal Bowel Sounds, Soft Genitalia: Deferred Pelvic: Deferred Rectal: Deferred Extremities: No calf tenderness, Normal capillary refill, Normal inspection, Normal range of motion, Non-tender, No pedal edema Musculoskeletal : Apperance: Normal Neurologic: Alert, administration manager II-XII nml as Tested, No Motor Deficits, Normal Affect, Normal Mood, No Sensory Deficits Cerebellar Function: Normal Reflexes: Normal Skin: Dry, Normal Color, Warm Lymphatic: No Adenopathy Was a procedure done? Was a procedure done?: No Differential Diagnosis EXT Differential Diagnosis: Fracture, Sprain, Contusion, Strain X-Ray, Labs, Meds, VS Vital Signs Date Time Temp Pulse Resp B/P (MAP) Pulse Ox O2 Delivery O2 Flow Rate FiO2 04/03/25 20:41 97.3 101 16 151/93 98 97.3 Lab Test 04/03/25 22:00 Range/Units White Blood Count 14.0 H 4.4-10.8 10^3/uL Red Blood Count 4.92 4.0-5.20 10^6/uL Hemoglobin 15.0 12.2-16.2 g/dL Hematocrit 42.9 36.0-46.0 % Mean Corpuscular Volume 87.1 80.0-100.0 fL Mean Corpuscular Hemoglobin 30.6 28.0-32.0 pg Mean Corpuscular Hemoglobin Concent 35.1 32.0-36.0 g/dL Red Cell Distribution Width 14.1 11.8-14.3 % Platelet Count 201 140-450 10^3/uL Mean Platelet Volume 8.7 6.9-10.8 fL Neutrophils (%) (Auto) 82.7 H 37.0-80.0 % Lymphocytes (%) (Auto) 10.1 10.0-50.0 % Monocytes (%) (Auto) 5.8 0.0-12.0 % Eosinophils (%) (Auto) 0.4 0.0-7.0 % Basophils (%) (Auto) 1.0 0.0-2.0 % Neutrophils # (Auto) 11.6 H 1.6-8.6 10 ^3/uL Lymphocytes # (Auto) 1.4 0.4-5.4 10 ^3/uL Monocytes # (Auto) 0.8 0-1.3 10 ^3/uL Eosinophils # (Auto) 0.1 0-0.8 10 ^3/uL Basophils # (Auto) 0.1 0-0.2 10 ^3/uL Nucleated Red Blood Cells 0.0 % Prothrombin Time 10.4 9.3-11.8 sec Prothrombin Time INR 0.98 0.9-1.15 Activated Partial Thromboplast Time 26.1 24.5-34.5 SEC Sodium Level 139 136-145 mmol/L Potassium Level 4.3 3.5-5.1 mmol/L Chloride Level 105 98-107 mmol/L Carbon Dioxide Level 25 20-31 mmol/L Anion Gap 9 5-15 Blood Urea Nitrogen 12 9-23 mg/dL Creatinine 0.82 0.550-1.02 mg/dL Glomerular Filtration Rate Calc 78 >90 mL/min BUN/Creatinine Ratio 14.6 10.0-20.0 Serum Glucose 153 H 74-106 mg/dL Calcium Level 9.5 8.7-10.4 mg/dL Total Bilirubin 0.6 0.2-1.0 mg/dL Aspartate Amino Transferase (AST) 25 13-40 U/L Alanine Aminotransferase (ALT) 26 7-40 U/L Alkaline Phosphatase 104 46-116 U/L Total Protein 7.2 5.7-8.2 g/dL Albumin 4.3 3.2-4.8 g/dL Time of 1ST Reevaluation: 21:38 Reevaluation 1ST: Unchanged Patient Education/Counseling: Diagnosis, Treatment Family Education/Counseling: No Family Present Departure 1 Departure Time of Disposition: 23:12 Impression: Primary Impression: Closed right hip fracture Disposition: 01 HOME / SELF CARE / HOMELESS Admit to: Med Surg Condition: Guarded Comments 69-year-old female ground level fall now unable to bear weight. X-ray show a right femoral neck hip fracture that is closed. Lab review shows elevated white blood cell count of 14. Patient will need to be admitted for orthopedic consultation and possible ORIF Critical Care Note Critical Care Time?: No Stability Stability form required: No Heart Score Heart Score: Heart Score Response (Comments) Value History N/A 0 EKG N/A 0 Age N/A 0 Risk Factors N/A 0 Troponin N/A 0 Total 0 I personally scribed for TRISHA BALDERAS MD ([email or web address]) on 04/03/25 at 21:41. Electronically submitted by Rojas Hanna ([email or web address]). TRISHA BALDERAS MD Apr 03, 2025 21:41
[2025-04-03 22:24] LABS: Hematocrit 42.9 % (36.0-46.0); Hemoglobin 15.0 g/dL (12.2-16.2); Mean Corpuscular Hemoglobin 30.6 pg (28.0-32.0); Mean Corpuscular Volume 87.1 fL (80.0-100.0); Nucleated Red Blood Cells % 0.0 %
--- NOTE | 2025-04-03 22:26 | DVH ---
EXAMINATIONS: 2 views of the right hip 5 views of the right femur 2 views of the right knee CLINICAL HISTORY: pain / fall COMPARISON: None Findings and impression: Transversely oriented and mildly displaced right femoral neck fracture. The distal femur and knee appear grossly intact.
--- NOTE | 2025-04-03 22:27 | DVH ---
CHEST RADIOGRAPH Indication: pre-op Technique: 1 view Comparison: XY CHEST XRAY 1 VIEW on DOS: 07/30/24 FINDINGS: Lines and Tubes: None Lungs/Pleura: Lung apices are excluded. Mild bilateral interstitial prominence. No focal consolidatio n, pleural effusion or pneumothorax. Cardiomediastinum: Normal heart size. Other: No acute osseous abnormality. IMPRESSION: 1. Similar bilateral interstitial prominence suggesting edema. No acute finding, with the lung apice s excluded.
[2025-04-03 22:36] LABS: Alanine Aminotransferase 26 U/L (7-40); Albumin 4.3 g/dL (3.2-4.8); Alkaline Phosphatase 104 U/L (46-116); Anion Gap 9 (5-15); BUN/Creatinine Ratio 14.6 (10.0-20.0); Blood Urea Nitrogen 12 mg/dL (9-23); Calcium 9.5 mg/dL (8.7-10.4); Carbon Dioxide 25 mmol/L (20-31); Chloride 105 mmol/L (98-107); Potassium 4.3 mmol/L (3.5-5.1); Sodium 139 mmol/L (136-145); Total Protein 7.2 g/dL (5.7-8.2)
[2025-04-03 22:37] LABS: Bilirubin, Total 0.6 mg/dL (0.2-1.0); Glucose 153 mg/dL (74-106)
[2025-04-03 22:38] LABS: INR 0.98 (0.9-1.15); Partial Thromboplastin Time 26.1 SEC (24.5-34.5); Prothrombin Time 10.4 sec (9.3-11.8)
[2025-04-03 23:45] VITALS: PULSE 100; RESP 14; O2SAT 95
[2025-04-03] MEDS: ONDANSETRON HCL 4 MG/2 ML VIAL IV ONE (23:53)
[2025-04-03] MEDS: HYDROmorphone HCL 2 MG/ML VL/or syr IV ONE (23:53)
[2025-04-04] VITALS (22 sets, daily range): BP systolic 117–160; BP diastolic 69–102; PULSE 88–116; RESP 14–22; TEMP 97.3–98.2; O2SAT 86–100
[2025-04-04] MEDS ORDERED: hydrALAZINE HCL 20 MG/ML VL IV PRN (00:15)
[2025-04-04] MEDS ORDERED: NITROGLYCERIN 0.4 MG SL TAB SL PRN (00:15)
[2025-04-04] MEDS ORDERED: DOCUSATE SOD 100 MG CAP PO PRN (00:15)
--- NOTE | 2025-04-04 00:34 | DVHHP2 ---
History Allergies: Coded Allergies: NO KNOWN ALLERGIES (Unverified , 06/25/24) Chief Complaint: Right hip pain post mechanical fall Present Illness(Onset/Duration 69 YO Female with PMHx for HTN who presents to the ER after sustaining a mechanical fall with severe injury and pain to the right hip with difficulty standing up. Patient denied any head trauma or loss of consciousness. Patient after having imaging completed was found to have right femoral neck mildly displaced fracture. Non Contributory Past Surgical History Cholecystectomy, Medications ASA EC 81mg PO Daily Amlodipine 5mg PO daily Flomax 0.4mg PO daily Ibuprofen 800mg PO PRN TID for pain Physical Exam EENT NC/AT, EOMI Chest and Lungs Clear to auscultation bilaterally, no wheezing, rhonchi, or rales Heart Regular Rate and Rhythm, no rubs, gallops, or murmur Abdomen Soft, NT, ND, + BS Extremities No LE edema, clubbing, or Cyanosis, no LE deficits Vital Signs Vital Signs Date Time Temp Pulse Resp B/P (MAP) Pulse Ox O2 Delivery O2 Flow Rate FiO2 04/03/25 23:53 93 18 132/83 04/03/25 20:41 97.3 98 97.3 Other Imaging: EXAMINATIONS: 2 views of the right hip 5 views of the right femur 2 views of the right knee CLINICAL HISTORY: pain / fall COMPARISON: None Findings and impression: Transversely oriented and mildly displaced right femoral neck fracture. The distal femur and knee appear grossly intact. : Impressions/Description Primary Diagnosis: Right Femoral Neck Fracture Secondary Diagnosis: Essential HTN Plan - Med Surg Admit - Dr. Cr Esteban, Orthopedic Consult - NPO with exception to medication - [place] 5/325mg 1 tab PO PRN Q6 hours for Pain - Zofran 4mg IV PRN Q6 Hours for N/V - Hydralazine 10mg IV PRN Q6 Hours for SBP > 150mmHg - AM labs with CBC and BMP Full Code DVT Prophy; SCDs RAMON UREÑA MD Apr 04, 2025 00:34
[2025-04-04] MEDS: SODIUM CHLORIDE 0.9% 1,000 ML IV SCH (01:30)
[2025-04-04] MEDS: MORPHINE SULFATE INJ 2 MG/ml SYRG IV PRN (04:10)
[2025-04-04] MEDS: PIPERACILLIN-TAZOB 3.375GM 100 ML IV SCH (07:45)
[2025-04-04] MEDS: TETRACAINE 1% INJ 2 ML VIAL IJ ONE (07:53)
--- NOTE | 2025-04-04 07:56 | DVHINCON2 ---
Date of service: Apr 04, 2025 Reason for Consultation Right hip femoral neck fracture History of Present Illness 69 yo F sp mechanical fall and landed onto right side. Immediate pain/inability to bear weight on right leg. No current cp/sob/abd pain/nausea/vomiting. +anxious; +chronic smoker Past Medical History HTN/Anxiety/ Chronic smoker Past Surgical History Family History: Patient reports no known family medical history. Allergies: Coded Allergies: NO KNOWN ALLERGIES (Unverified , 06/25/24) Home Meds Active Scripts Hydrocodone-Acetaminophen (Hydrocodone Bitartrate/AC 5-325 mg) 1 Tab Tab, 1 TAB PO Q6HPRN PRN for 6 Days, #24 TAB 0 Refills Prov:TAHRACHEL GUADALUPEI S DO 08/02/24 Cephalexin (KEFLEX CAPSULE) 250 Mg Cp, 1 CAP PO QID for 14 Days, #56 CAP 0 Refills Prov:TAHHAN,NICKI S DO 08/02/24 Sulfamethoxazole W/Trimethopri (Bactrim Ds Tablet) 1 Tab Tb, 1 TAB PO BID for 14 Days, #28 TAB 0 Refills Prov:RACHEL SERRANOI S DO 08/02/24 Current Medications Current Medications Medications (Trade) Dose Ordered Sig/Myah Route PRN Reason Start Time Stop Time Status Last Admin Sodium Chloride 1,000 ml @ 75 mls/hr [id number] IV 04/04/25 00:15 04/04/25 01:30 Acetaminophen/ Hydrocodone Bitart ([place] 5/325MG Tab) 1 tab Q4HP PRN PO MODERATE PAIN (4-6 PAIN SCALE) 04/04/25 00:15 Docusate Sodium (Colace Capsule) 100 mg BIDPRN PRN PO FOR CONSTIPATION 04/04/25 00:15 Morphine Sulfate 2 mg Q4HPRN PRN IV SEVERE PAIN (7-10 PAIN SCALE) 04/04/25 00:15 04/04/25 04:10 Nitroglycerin (Ntrostat Sublingual) 0.4 mg Q5MINP PRN SL FOR CHEST PAIN 04/04/25 00:15 Hydralazine HCl (Apresoline Injection) 10 mg Q6HP PRN IV SBP>150 04/04/25 00:15 Piperacillin Sod/ Tazobactam Sod 100 ml @ 25 mls/hr Q6HR IV 04/04/25 07:45 UNV Review of Systems 10 point ROS is neg except per HPI Vital Signs Vital Signs Date Time Temp Pulse Resp B/P (MAP) Pulse Ox O2 Delivery O2 Flow Rate FiO2 04/04/25 05:00 98.0 99 16 143/90 (107) 95 98.0 04/03/25 23:45 Room Air* 0 21 Physical Exam NAD RLE: no shortening or rotational deformity noted +TA/GS/EHL/FHL foot wwp Labs/Diagnostic Data Labs Test 04/03/25 22:00 Range/Units White Blood Count 14.0 H 4.4-10.8 10^3/uL Red Blood Count 4.92 4.0-5.20 10^6/uL Hemoglobin 15.0 12.2-16.2 g/dL Hematocrit 42.9 36.0-46.0 % Mean Corpuscular Volume 87.1 80.0-100.0 fL Mean Corpuscular Hemoglobin 30.6 28.0-32.0 pg Mean Corpuscular Hemoglobin Concent 35.1 32.0-36.0 g/dL Red Cell Distribution Width 14.1 11.8-14.3 % Platelet Count 201 140-450 10^3/uL Mean Platelet Volume 8.7 6.9-10.8 fL Neutrophils (%) (Auto) 82.7 H 37.0-80.0 % Lymphocytes (%) (Auto) 10.1 10.0-50.0 % Monocytes (%) (Auto) 5.8 0.0-12.0 % Eosinophils (%) (Auto) 0.4 0.0-7.0 % Basophils (%) (Auto) 1.0 0.0-2.0 % Neutrophils # (Auto) 11.6 H 1.6-8.6 10 ^3/uL Lymphocytes # (Auto) 1.4 0.4-5.4 10 ^3/uL Monocytes # (Auto) 0.8 0-1.3 10 ^3/uL Eosinophils # (Auto) 0.1 0-0.8 10 ^3/uL Basophils # (Auto) 0.1 0-0.2 10 ^3/uL Nucleated Red Blood Cells 0.0 % Prothrombin Time 10.4 9.3-11.8 sec Prothrombin Time INR 0.98 0.9-1.15 Activated Partial Thromboplast Time 26.1 24.5-34.5 SEC Sodium Level 139 136-145 mmol/L Potassium Level 4.3 3.5-5.1 mmol/L Chloride Level 105 98-107 mmol/L Carbon Dioxide Level 25 20-31 mmol/L Anion Gap 9 5-15 Blood Urea Nitrogen 12 9-23 mg/dL Creatinine 0.82 0.550-1.02 mg/dL Glomerular Filtration Rate Calc 78 >90 mL/min BUN/Creatinine Ratio 14.6 10.0-20.0 Serum Glucose 153 H 74-106 mg/dL Calcium Level 9.5 8.7-10.4 mg/dL Total Bilirubin 0.6 0.2-1.0 mg/dL Aspartate Amino Transferase (AST) 25 13-40 U/L Alanine Aminotransferase (ALT) 26 7-40 U/L Alkaline Phosphatase 104 46-116 U/L Total Protein 7.2 5.7-8.2 g/dL Albumin 4.3 3.2-4.8 g/dL Plan/Recommendation 69 yo F sp fall with nondisplaced right femoral neck fracture 1. I had a long and thorough discussion with the patient regarding her condition. Nonoperative and operative management discussed in depth. Risks benefits options and risks were reviewed. Risks include but are not exclusive to bleeding infection nerve injury chronic pain nonunion malunion need for further surgery blood clots cardiac and pulmonary complications amputation . Patient understands the morbidity and mortality of hip fractures in the elderly. Patient understands the healing of these fractures and a fracture does not heal that she will need a hip replacement surgery in the future. Patient understands and wished to proceed with surgical intervention 2. Plan for open reduction internal fixation of right femoral neck fracture 3. NPO/IV fluids 4. Pain control 5. DVT prophylaxis Plan discussed with: Patient KULDEEP PINO MD Apr 04, 2025 07:56
[2025-04-04] MEDS ORDERED: fentaNYL CITRATE 100 MCG/2 ML VL ONE (07:59)
[2025-04-04] MEDS ORDERED: PROPOFOL 10 MG/ML 20 ML IV ONE (08:00)
[2025-04-04] MEDS ORDERED: MIDAZOLAM HCL 2MG/2ML 2ml VIAL (1mg/ml) ONE (08:00)
[2025-04-04] MEDS ORDERED: KETAMINE 50mg/ML 10ml Vial 10 ML ONE (08:00)
[2025-04-04] MEDS ORDERED: MORPHINE SULF PF 5 MG/10 ML VIAL ONE (08:01)
[2025-04-04] MEDS: ceFAZolin 2 GM/D5W50ml 50 ML IV ONE (08:03)
[2025-04-04] MEDS: BUPIVACAINE 0.25% INJ 50ML VIAL ONE (08:33)
--- NOTE | 2025-04-04 08:55 | DVHOP2 ---
Operative Report - 2 Report Details Date: 04/04/25 Preop Diagnosis: Right femoral neck fracture Postop Diagnosis: as above Surgeon: Gilson Esteban MD Anesthesiologist: Luis MENG Anesthesia: Local, Regional Implant: ITS 6.5 mm partially threaded screw x 3 Teena Tactoset Consent: The patient was informed of the risks and benefits of the procedure. These include but are not limited to complications of anesthesia, postoperative infection, incomplete relief of symptoms, recurrence of symptoms, damage to blood vessels, nerves and tendons, deep venous thrombosis, pulmonary embolism and possible need for repeat surgery in the future. Estimated Blood Loss: 20 cc Name of Procedure Performed 1. Open reduction internal fixation of right femoral neck fracture; 2. Intraop fluoroscopy Procedure Details Procedure Details: he patient was brought to the operating room and placed supine on a radiolucent fracture table. General anesthesia was induced, and the right lower extremity was prepped and draped in the usual sterile fashion. The contralateral leg was placed in abduction. Under fluoroscopic guidance, gentle longitudinal traction was applied to the affected limb. The hip was internally rotated and adducted as needed to achieve anatomic reduction, confirmed on both AP and lateral fluoroscopic views. Once satisfactory reduction was obtained, the limb was maintained in position. The lateral aspect of the proximal femur was marked, and small stab incisions were made at the planned entry points. Guidewires were inserted percutaneously and advanced across the fracture site into the femoral head under fluoroscopic control, ensuring appropriate position on multiple views. After confirming guidewire placement, cannulated drill bits were used to prepare the tract, and three cannulated screws were inserted over the guidewires to achieve stable fixation. Tactoset placed into fracture site Final fluoroscopic images confirmed satisfactory reduction and hardware position, with no evidence of joint penetration. The wounds were irrigated and closed with luisa. 0.25 percent marcaine placed into wound. Sterile dressings were applied. The patient was awakened and transferred to the recovery room in stable condition. Specimen: 1. Toe touch weight bearing RLE x 2 weeks 2. Pain control 3. change dressing as needed 4. DVT ppx x 2 weeks 5. fu in ortho clinic in 2 weeks Condition Good Disposition Still a Patient GILSON ESTEBAN MD Apr 04, 2025 08:55
[2025-04-04] MEDS ORDERED: HYDROmorphone HCL 2 MG/ML VL/or syr IV PRN ×2 (09:15)
[2025-04-04] MEDS ORDERED: ONDANSETRON HCL 4 MG/2 ML VIAL IV PRN ×2 (09:15)
[2025-04-04] MEDS ORDERED: MORPHINE SULFATE 4 MG/ML SYR/VIAL IV PRN (09:15)
[2025-04-04] MEDS ORDERED: diphenhdrAMINE HCL 50 MG/1 ML VL IV PRN (09:15)
[2025-04-04] MEDS: ASPirin-EC 81 mg tab PO SCH (10:00)
--- NOTE | 2025-04-04 10:35 | DVH ---
C-ARM FLUOROSCOPY: PROCEDURE: Right hip ORIF FLUOROSCOPY TIME: 75.9 sec DAP: 12 .27 mgy FINDINGS: Spot intraoperative C arm radiographs demonstrating right hip ORIF. IMPRESSION: Please refer to surgical report for detailed findings.
--- NOTE | 2025-04-04 10:35 | DVH ---
C-ARM FLUOROSCOPY: PROCEDURE: Right hip ORIF FLUOROSCOPY TIME: 75.9 sec DAP: 12 .27 mgy FINDINGS: Spot intraoperative C arm radiographs demonstrating right hip ORIF. IMPRESSION: Please refer to surgical report for detailed findings.
[2025-04-04 11:37] LABS: Hematocrit 43.3 % (36.0-46.0); Hemoglobin 15.0 g/dL (12.2-16.2); Mean Corpuscular Hemoglobin 30.6 pg (28.0-32.0); Mean Corpuscular Volume 88.6 fL (80.0-100.0)
[2025-04-04 11:45] LABS: Chloride 102 mmol/L (98-107); Potassium 4.6 mmol/L (3.5-5.1); Sodium 137 mmol/L (136-145)
[2025-04-04 11:46] LABS: Anion Gap 6 (5-15); Carbon Dioxide 29 mmol/L (20-31)
[2025-04-04 11:47] LABS: Calcium 9.2 mg/dL (8.7-10.4)
[2025-04-04 11:51] LABS: BUN/Creatinine Ratio 10.8 (10.0-20.0); Blood Urea Nitrogen 10 mg/dL (9-23)
[2025-04-04 12:01] LABS: Glucose 222 mg/dL (74-106)
[2025-04-04 12:48] LABS: Total Cells Counted 100.0 (100)
[2025-04-04] MEDS: ceFAZolin 1GM/50ML 50 ML IV SCH (14:00)
--- NOTE | 2025-04-04 14:25 | DVHDS2 ---
New Physician D'charge PN Admitting Diagnosis Admitting Diagnosis hip fx Discharge Diagnosis R hip fx s/p ORIF Operations or Procedures ORIF R hip with ortho Reason(s) For Hospitalization Surgery Hospital Course 69 F who comes to ER after fall at home. She landed on her R hip and imaging revealed R hip Fx. She was admitted and kept NPO. Orthopedic surgery was consulted and she consented to surgery for R hip repair. She underwent R hip ORIF with ortho surgery on 04/04/25. Post-operatively she is doing well. She will be discharged to SNF for continued physical therapy after R hip ORIF. [facility] to arrange for SNF bed and transport. Patient and family agreeable with plan. Treatment Plan Discharge Condition of Discharge Good Disposition [facility] Facility Discharge Instructions Diet: Regular Activity: No Restrictions, As Tolerated Medications: see med sheet Follow Up Care Follow Up/Referral: pcp ortho Discharge Statement: "Patient was advised to return to the ER or call 911 if any headaches, dizziness, shortness of breath, chest pain, abdominal pain, bleeding, fevers, or worsening of medical condition. Patient was counseled about treatment plan, medications, possible side effects, patientverbalized understanding. All questions were answered to the best of my ability. This discharge took greater then 30 minutes in planning, reviewing documentation, counseling the patient, and discussing with other team members." JOHNNY WALSH MD Apr 04, 2025 14:25
[2025-04-04 21:21] LABS: Urine Budding Yeast OCCASIONAL /hpf (None Seen); Urine Protein, UAD Negative (Negative)
[2025-04-04] MEDS: HYDROcodone-ACET 5/325MG TAB PO PRN (21:27)
[2025-04-05] VITALS (18 sets, daily range): BP systolic 108–154; BP diastolic 64–107; PULSE 87–112; RESP 15–20; TEMP 97.2–98.4; O2SAT 88–100
[2025-04-05 07:51] LABS: Anion Gap 9 (5-15); Carbon Dioxide 25 mmol/L (20-31); Chloride 103 mmol/L (98-107); Potassium 4.1 mmol/L (3.5-5.1); Sodium 137 mmol/L (136-145)
[2025-04-05 07:52] LABS: Calcium 9.1 mg/dL (8.7-10.4); Hematocrit 40.0 % (36.0-46.0); Hemoglobin 13.6 g/dL (12.2-16.2); Mean Corpuscular Hemoglobin 30.4 pg (28.0-32.0); Mean Corpuscular Volume 89.0 fL (80.0-100.0); Nucleated Red Blood Cells % 0.0 %
[2025-04-05 07:57] LABS: BUN/Creatinine Ratio 18.2 (10.0-20.0); Blood Urea Nitrogen 16 mg/dL (9-23)
[2025-04-05 08:00] LABS: Glucose 234 mg/dL (74-106)
[2025-04-05] MEDS ORDERED: LEVO500T91 PO (08:13)
[2025-04-05] MEDS: FUROSEMIDE 20 MG/2 ML VIAL IV ONE (09:19)
== END 2025-04-05 18:39 | DRG 482 ==
LOC: ER 20:41 → EDBD 20:41 → EDSEX 20:41 → OVERFLOW 04-04 00:14 → EAST 04-04 03:39 → TELE-EAST 04-04 09:19
PROVIDERS: ADMIT Hospitalist; ATTEND Anesthesiology
PROC: B41F110 Fluoroscopy of Right Lower Extremity Arteries using Low Osmolar Contrast, Laser Intraoperative (ICD-10-PCS; 2025-04-04)
PROC: 0QS604Z Reposition Right Upper Femur with Internal Fixation Device, Open Approach (ICD-10-PCS; principal; 2025-04-04 08:03)
DX: S72.001A Fracture of unspecified part of neck of right femur, initial encounter for closed fracture (principal); F17.210 Nicotine dependence, cigarettes, uncomplicated; I10 Essential (primary) hypertension; F41.9 Anxiety disorder, unspecified; Z86.73 Personal history of transient ischemic attack (TIA), and cerebral infarction without residual deficits; Z90.49 Acquired absence of other specified parts of digestive tract; Z98.891 History of uterine scar from previous surgery; Z87.442 Personal history of urinary calculi; Z79.2 Long term (current) use of antibiotics; Z79.899 Other long term (current) drug therapy; W18.39XA Other fall on same level, initial encounter; Y93.89 Activity, other specified; Y92.098 Other place in other non-institutional residence as the place of occurrence of the external cause; Y99.8 Other external cause status
CPT/HCPCS: 36415; 71045; 73502; 73560; 76000; 80048; 80053; 81001; 85007; 85025; 85027; 85610; 85730; 96374; 96375; 97163; G0378; J1100; J2250; J2405; J2543; J2704; J3490